=== PATIENT | male | born 1965 | race Caucasian/White ===

== ENCOUNTER 2024-09-22 09:16 | Outpatient (CLI) | payer MEDICARE, SELFPAY ==
--- NOTE | 2024-09-22 09:15 | CRLHL7_ITS ---
For Patients: As a result of the Cures Act, medical imaging exams and procedure reports are released immediately into your electronic medical record. You may view this report before your referring provider. If you have questions, please contact your health care provider. Examination: US abdominal aorta Indication: History of tobacco use. Abdominal aortic aneurysm screening. Technique: Boogie scale and color Doppler images of the aorta and common iliac arteries are obtained. Comparison: None Findings: Proximal aorta: 2.5 x 2.8 cm, partially obscured by bowel gas. Mid aorta: 1.8 x 1.8 cm Distal aorta: 1.7 x 1.7 cm Right common iliac artery: 1.5 x 1.2 cm Left common iliac artery: 1.5 x 1.2 cm Recommended imaging interval for ectatic aorta: 2.5-2.9 cm: 5 years Impression: No aneurysm within the visualized aorta. Dictated by Jonathan Orellana MD @ 09/22/2024 11:00:56 AM (Electronically Signed)
== END 2024-09-22 09:17 | disposition home or self-care (01) ==
PROVIDERS: PCP Physician Assistant Medical; Visit Provider Physician Assistant Medical
DX: Z13.6 Encounter for screening for cardiovascular disorders (principal); Z87.891 Personal history of nicotine dependence
CPT/HCPCS: 76706

== ENCOUNTER 2024-10-23 13:49 | Outpatient (CLI) | payer MEDICARE, SELFPAY ==
--- NOTE | 2024-10-23 14:00 | CRLHL7_ITS ---
For Patients: As a result of the Century Cures Act, medical imaging exams and procedure reports are released immediately into your electronic medical record. You may view this report before your referring provider. If you have questions, please contact your health care provider. Indication: ANEURYSM OF ASCENDING AORTA W/O RUPTURE Technique: Noncontrast CT chest Please note that all CT scans at this facility use dose modulation, iterative reconstruction, and/or weight-based dosing when appropriate to reduce radiation dose to as low as reasonably achievable. Comparison: None available Findings: Postop changes to the thyroid. Ovoid soft tissue structure within the prevascular upper mediastinum measures 1.8 cm. Small bilateral adrenal nodules with low density compatible with adenomas, measuring up to 1.2 cm. Spleen unremarkable. Fatty liver noted. Incidental cyst within the left hepatic lobe measures 1.2 cm. No axillary adenopathy. Ascending aorta measures 4.9 x 4.8 cm. Mild bilateral subareolar gynecomastia. No fracture. Right apical pleural scarring noted. Partially calcified nodule in the posterior right apex measures 1 cm. No fracture. Impression: Ascending aortic aneurysm measures 4.9 x 4.8 cm. Indeterminate ovoid soft tissue density in the superior mediastinum anterior to the great vessels which measures 1.8 cm. In a patient with history of thyroidectomy for presumed thyroid cancer, this would be suspicious for lymph node spread or potentially ectopic thyroid tissue. Correlation with prior imaging and surgical history recommended Probably benign partially calcified 1 cm nodule posterior right lung apex. Comparison with prior studies would be useful. Small bilateral adrenal adenomas. Hepatic steatosis. Please note that all CT scans at this facility use dose modulation, iterative reconstruction, and/or weight-based dosing when appropriate to reduce radiation dose to as low as reasonably achievable. Dictated by Jonathan Orellana MD @ 10/24/2024 11:21:42 AM (Electronically Signed)
== END 2024-10-23 13:50 | disposition home or self-care (01) ==
LOC: CT 13:50
PROVIDERS: PCP Physician Assistant Medical; Visit Provider Physician Assistant Medical
DX: I71.21 Aneurysm of the ascending aorta, without rupture (principal); R91.8 Other nonspecific abnormal finding of lung field; E27.9 Disorder of adrenal gland, unspecified; K76.0 Fatty (change of) liver, not elsewhere classified
CPT/HCPCS: 71250

== ENCOUNTER 2024-12-29 14:56 | Outpatient (CLI) | payer MEDICARE, SELFPAY ==
--- NOTE | 2024-12-29 14:30 | CRLHL7_ITS ---
For Patients: As a result of the Century Cures Act, medical imaging exams and procedure reports are released immediately into your electronic medical record. You may view this report before your referring provider. If you have questions, please contact your health care provider. INDICATION: Patient with a history of thyroid carcinoma; nodule superior mediastinal on CT; further evaluation. COMPARISON: CT chest without intravenous contrast October 23, 2024; I 123 whole body scan October 11, 2023. TECHNIQUE: MR of the chest without and with intravenous contrast; precontrast T1 and T2 weighted imaging; T2 haste imaging; in and out of phase imaging; postcontrast imaging and axial, coronal and sagittal projections; 26 cc of Dotarem contrast was injected IV. FINDINGS: A 1.8 cm complex enhancing lesion superior mediastinum in the retrosternal location just anterior to the left subclavian vein. Dilated ascending thoracic aorta measuring 4.8 cm in diameter. The descending thoracic aorta measures 3.2 cm in diameter. Multiple cysts identified within the liver and an enhancing lesion identified in segment 3 of the liver measuring 1.9 cm; cannot accurately categorize this lesion; suggest obtaining MR of the abdominal without and with intravenous contrast for further assessment. IMPRESSION: 1. A 1.8 cm enhancing nodule superior mediastinum in the retrosternal location and anterior to the left subclavian vein; in a patient with previous history of thyroid cancer, a metastatic deposit in this location cannot be ruled out even though the I 123 whole body scan in 2023 was unremarkable; this is not amenable for image guided biopsy; thymoma can have a similar appearance. 2. A 1.9 cm enhancing lesion in segment 3 of the liver; suggest obtaining an MRI of the abdomen with intravenous contrast for further assessment. Dictated by Katiana Carrizales MD @ 01/02/2025 10:02:27 AM (Electronically Signed)
== END 2024-12-29 14:57 | disposition home or self-care (01) ==
LOC: MRI 14:57
PROVIDERS: PCP Physician Assistant Medical; Visit Provider Physician Assistant Medical
DX: R91.1 Solitary pulmonary nodule (principal); K76.9 Liver disease, unspecified
CPT/HCPCS: 73220; A9575